=== PATIENT | female | born 1970 | race Hispanic/Latino ===

== ENCOUNTER 2016-12-31 05:54 | Observation (INO) | payer OTHER ==
--- NOTE | 2016-12-31 06:10 | ED PDOC ---
Syncope/Near Syncope/Dizzyness Time Seen by Provider: 12/31/16 05:57 Chief Complaint (Nursing): Syncope History Per: Patient History/Exam Limitations: no limitations Onset/Duration Of Symptoms: Mins Current Symptoms Are (Timing): Better Number Of Syncopal Episodes: 1 Associated Symptoms Preceding Syncopal Episode: Lightheadedness Seizure Or Post-ictal Symptoms: None Additional Complaint(s): Hx of HTN (Doesn't know meds or PMD) p/w syncopal episode this morning, states that she woke up this morning and went to [facility] bathroom, felt dizzy and lightheaded and then passed out. states that she "face planted". Patient states that she urinated on herself, but she states this was because she needed to urinate very badly and remembers urinating on herself, denies tongue biting. States she currently has a HARVEY. Denies CP/SOB/palpitations currently, but earlier she states she was having SOB and palpitations during the syncopal episdoe. Of note, patient states she drinks 2 bottles of wine daily and states she drank that much yesterday. +Smoker. Denies drugs. PMD: Dr. Naila Cool - Risk Factors TAD Risk Factors: Pos: Hypertension Past Medical History - Medical History PMH: Anxiety, Depression, HTN - Family History Family History: States: Unknown Family Hx - Allergies Allergies/Adverse Reactions: Allergies Allergy/AdvReac Type Severity Reaction Status Date / Time No Known Allergies Allergy Verified 01/20/16 03:58 Review of Systems ROS Statement: Except As Marked, All Systems Reviewed And Found Negative Cardiovascular: Negative for: Chest Pain Neurological: Positive for: Dizziness Physical Exam - Reviewed Nursing Documentation Reviewed: Yes Vital Signs Reviewed: Yes - Physical Exam Appears: Positive for: Well, Non-toxic, No Acute Distress Head Exam: Positive for: ATRAUMATIC, NORMAL INSPECTION, NORMOCEPHALIC Skin: Positive for: Normal Color, Warm, DRY Eye Exam: Positive for: EOMI, Normal appearance, PERRL ENT: Negative for: Normal ENT Inspection (dried blood in nares, no septal hematoma) Neck: Positive for: Normal, Painless ROM Cardiovascular/Chest: Positive for: Irregularly Irregular Respiratory: Positive for: CNT, Normal Breath Sounds Gastrointestinal/Abdominal: Positive for: Normal Exam, Bowel Sounds, Soft Back: Positive for: Normal Inspection Extremity: Positive for: Normal ROM Neurologic/Psych: Positive for: Alert, Oriented Medical Decision Making Medical Decision Making: PT. w/ syncopal episode. Tachy w/ Afib w/ RVR, possibly dehydration related, possibly 2/2 to alcohol use or electrolyte imbalance. Will do labs, ekg, CT, cxr, and reassess. Disposition - Clinical Impression Clinical Impression: Syncope, Atrial fibrillation with RVR - Disposition Disposition: Transfer of Care Disposition Time: 07:00 Condition: STABLE Patient Signed Over To: Dino Ramos Handoff Comments: labs, ct, reassessment
[2016-12-31] MEDS ORDERED: Sodium Chloride 0.9% 1,000 ML IV STA ×2 (06:15→08:36)
[2016-12-31 07:03] LABS: BASO % 1.3 % (0.0-2.0); EOS # 0.1 K/uL (0.0-0.7); EOS % 3.5 % (0.0-4.0); HEMATOCRIT 41.2 % (34.0-47.0); LYMPH # 1.5 K/uL (1.0-4.3); LYMPH % 39.4 % (20.0-40.0); MEAN CELL VOLUME 99.7 fl (81.0-99.0); MEAN CORPUSCULAR HEMOGLOBIN 33.4 pg (27.0-31.0); MEAN CORPUSCULAR HGB CONC 33.5 g/dL (33.0-37.0); MEAN PLATELET VOLUME 7.8 fl (7.2-11.7); MONO # 0.5 K/uL (0.0-0.8); MONO % 13.5 % (0.0-10.0); NEUT # 1.6 K/uL (1.8-7.0); NEUT % 42.3 % (50.0-75.0); RED CELL DISTRIBUTION WIDTH 13.2 % (11.5-14.5); WHITE BLOOD COUNT 3.7 K/uL (4.8-10.8)
[2016-12-31 07:15] LABS: ALB/GLOB RATIO 1.3 (1.0-2.1); ALCOHOL SERUM 44 mg/dl (0-10); ALKALINE PHOSPHATASE 49 U/L (38-126); ALT/SGPT 39 U/L (9-52); AST/SGOT 42 U/L (14-36); BILIRUBIN,TOTAL 0.6 mg/dl (0.2-1.3); BLOOD UREA NITROGEN 12 mg/dl (7-17); CALCIUM 8.9 mg/dL (8.4-10.2); CARBON DIOXIDE 22 mmol/L (22-30); CHLORIDE 105 mmol/L (98-107); GFR AFRICAN-AMERICAN > 60; GLUCOSE,RANDOM 86 mg/dL (65-105); POTASSIUM 3.7 MMOL/L (3.6-5.0); SODIUM 139 mmol/l (132-148); TOTAL PROTEIN 7.1 G/DL (6.3-8.2)
--- NOTE | 2016-12-31 08:27 | ED PDOC ---
- Laboratory Results Result Diagrams: 12/31/16 06:52 12/31/16 06:52 - ECG O2 Sat by Pulse Oximetry: 100 Medical Decision Making Medical Decision Making: Time: 699 Patient signed out by Dr. Doty pending work up and admission Time: 899 Repeat EKG: AFib 139 Troponin negative Patient will be admitted at this time to medicine oncall pt evauated at bedside. still tachycardic and in a fib. according to pt has history of afib but never followed up with flyer repairer. pt aware that will be staying in hospital and agreeable to plan. pt given iv and po cardizem. Time: [address] Redd (med material controller) who accepted patient, cardiology consulted. Dr. Bang requested that we withhold Lovenox until he evaluates patient at bedside. Scribe Attestation: Documented by Marilin Bhat acting as a scribe for Dino Ramos MD MD Scribe Attestation: All medical record entries made by the Scribe were at my direction and personally dictated by me. I have reviewed the chart and agree that the record accurately reflects my personal performance of the history, physical exam, medical decision making, and the department course for this patient. I have also personally directed, reviewed, and agree with the discharge instructions and disposition. Disposition Counseled Patient/Family Regarding: Studies Performed, Diagnosis, Need For Followup - Clinical Impression Clinical Impression: Syncope, Atrial fibrillation with RVR - POA Present On Arrival: None - Disposition Disposition: Admitted as In-Patient Disposition Time: 08:30 Condition: STABLE
--- NOTE | 2016-12-31 09:40 | CT ---
PROCEDURE: CT HEAD WITHOUT CONTRAST. HISTORY: syncope, head trauma COMPARISON: Correlation made with concurrent CT scan maxillofacial skeleton. TECHNIQUE: Axial computed tomography images were obtained through the head/brain without intravenous contrast. Radiation dose: Total exam DLP = 864.94 mGy-cm. This CT exam was performed using one or more of the following dose reduction techniques: Automated exposure control, adjustment of the mA and/or kV according to patient size, and/or use of iterative reconstruction technique. FINDINGS: HEMORRHAGE: No intracranial hemorrhage. BRAIN: No mass effect or edema. Mild generalized volume loss. Minimal vascular calcifications VENTRICLES: No evidence of obstructive hydrocephalus. CALVARIUM: Unremarkable. PARANASAL SINUSES: Unremarkable as visualized. No significant inflammatory changes. MASTOID AIR CELLS: Unremarkable as visualized. No inflammatory changes. OTHER FINDINGS: None. IMPRESSION: No acute intracranial hemorrhage. Mild generalized volume loss with more localized atrophic changes involving the frontal cortex. Indication
--- NOTE | 2016-12-31 09:48 | CT ---
PROCEDURE: CT MAXILLOFACIAL BONES WITHOUT CONTRAST HISTORY: facial trauma after syncopal episode COMPARISON: None TECHNIQUE: Contiguous axial CT images of the maxillofacial bones were obtained. Coronal and sagittal reformats were generated. Radiation dose: Total exam DLP = 864.94 mGy-cm. This CT exam was performed using one or more of the following dose reduction techniques: Automated exposure control, adjustment of the mA and/or kV according to patient size, and/or use of iterative reconstruction technique. FINDINGS: NASAL BONES: Unremarkable. There is deviation of the nasal septum from left to right felt to be pre-existing. ORBITS: There may be some mild localized on right lateral periorbital soft tissue swelling PARANASAL SINUSES/ MASTOIDS: Clear. MAXILLA: Unremarkable. MANDIBLE/ TEMPOROMANDIBULAR JOINTS: Unremarkable. SKULL BASE: Unremarkable. TEMPORAL BONES: Middle ears and mastoid grossly unremarkable. OTHER FINDINGS: None. IMPRESSION: No acute fracture seen. Mild focal deviation of the nasal septum from left to right felt be pre-existing findings. Questionable mild on the right lateral periorbital soft tissue swelling
[2016-12-31] MEDS ORDERED: Enoxaparin 80 mg Syringe SC SCH (12:00)
--- NOTE | 2016-12-31 12:17 | RAD ---
PROCEDURE: CHEST RADIOGRAPH, 1 VIEW HISTORY: afib w/ RVR, syncope COMPARISON: None available. FINDINGS: LUNGS: Clear. PLEURA: No pneumothorax or pleural fluid seen. CARDIOVASCULAR: Normal. OSSEOUS STRUCTURES: No significant abnormalities. VISUALIZED UPPER ABDOMEN: Normal. OTHER FINDINGS: None. IMPRESSION: No active disease.
--- NOTE | 2016-12-31 12:34 | CON ---
DATE: 12/31/2016 REASON FOR CONSULTATION: Atrial fibrillation and near syncope. HISTORY OF PRESENT ILLNESS: The patient is a 46-year-old female who has a history of ETOH abuse. 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 She was advised by her medical doctor to see a cardiologis t in the past, but does not know for which reason except for an abnormal cardiogram. The patient pre sented today because of a near syncopal episode. The patient stated that after drinking alcohol she had to use the bathroom and she felt dizzy. Before she was able to reach the commode, she collapsed on the floor, hitting her head. Following that, the patient urinated while on the floor. She denies any tongue biting. The patient does not recall for sure if she really lost consciousness or not, bu t she remembers feeling shaky. The patient denies any history of seizures in the past. After the im pact of the patient's head on the floor, the fiance was alerted and went to the bathroom and helped h er to the bed and he activated EMS who brought her to the Emergency Room. The patient denies any sim ilar scenario in the past. The patient denies any headache or neck pain following her fall. SOCIAL HISTORY: The patient is a drinker. MENSTRUAL HISTORY: The patient has not had her period for the past 9 months. She has no children. MEDICATIONS: The patient received 1 dose of Cardizem 50 mg intravenously in the Emergency Room follo wed by 30 mg p.o. as a single dose, and she is currently on IV fluid normal saline infusion. HOME MEDICATIONS: Included Norvasc 2.5 mg once a day, multivitamin 1 tablet once a day, Lexapro 20 m g once a day. However, the patient is noncompliant with her medications. PHYSICAL EXAMINATION: GENERAL: The patient is a middle-aged female who does not appear to be in any distress. VITAL SIGNS: Blood pressure 123/69, heart rate 106, temperature 98, respirations 16. HEENT: Normocephalic. NECK: No JVD. CHEST: Clear. HEART: S1, S2 regular. ABDOMEN: Soft. EXTREMITIES: No edema. LABORATORY DATA: Urine drug screen is negative. Alcohol level is 44. SMA-7: Sodium 139, potassium 3.7, chloride 106, CO2 22, glucose 86, BUN 12, creatinine 0.5. One set of troponins is negative. P T, PTT are within normal limit. Maxillofacial CT scan: No acute fracture, mild focal deviation of the nasal septum, questionable mil d on the right lateral periorbital soft tissue swelling. Chest x-ray unremarkable. EKG revealed atr ial fibrillation at rate of 131. ASSESSMENT: 1. Near syncope versus seizure activity. 2. New onset atrial fibrillation. 3. Ethanol abuse. 4. Hypertension. 5. History of an anxiety disorder. RECOMMENDATIONS: Start Lopressor 25 mg twice a day. I did review the head CT scan in the Emergency Room which revealed no acute intracranial hemorrhage, and I will start therapeutic subcutaneous Loven ox regimen. In the meantime, the patient will be maintained on both seizure and fall precautions. O btain TSH level and an echocardiogram. Start thiamine 100 mg p.o. daily. Continue intravenous hydra tion. Stewart Rodriguez MD cc: [id number] TT: 12/31/2016 12:33:25 Confirmation # [id number] Dictation # [id number]
--- NOTE | 2016-12-31 13:10 | CP.PCM.HP ---
History of Present Illness - History of Present Illness History of Present Illness: 46yo F with PMHx axiety/depression, HTN admitted for syncope and new onset Afib with RVR. c/o dizziness x1 year a/w palpitations at times. Today, ~ 9AM pt had to use the toilet to urinate, pt felt dizzy. +LOC from standing position to the floor, c/o pain at the nasal area. Denies any other head trauma/pain. Denies vertigo, H/A. States her PCP wanted her to get cardiology evaluation as outpt prior to this. PMHx: as above SHx: denies FHx: NC Social hx: denies x3 allergies: NKDA ED course EKG - Afib with RVR c/s cardio Diltiazem 15mg IV x1 Diltiazem 20mg IV x1 Diltiazem 30mg PO x1 NS IVF bolus 1L x2 Present on Admission - Present on Admission Any Indicators Present on Admission: No Review of Systems - Constitutional Constitutional: absent: Chills, Fever - Cardiovascular Cardiovascular: absent: Chest Pain - Respiratory Respiratory: absent: Dyspnea - Gastrointestinal Gastrointestinal: absent: Abdominal Pain, Diarrhea, Nausea, Vomiting - Genitourinary Genitourinary: absent: Dysuria, Hematuria - Musculoskeletal Musculoskeletal: Back Pain - Neurological Neurological: Dizziness, Weakness. absent: Frequent Falls, Vertigo Past Patient History - Past Social History Smoking Status: Light Smoker < 10 Cigarettes Daily - CARDIAC Hx Cardiac Disorders: Yes - PULMONARY Hx Respiratory Disorders: No - NEUROLOGICAL Hx Neurological Disorder: No - HEENT Hx HEENT Problems: No - RENAL Hx Chronic Kidney Disease: No - ENDOCRINE/METABOLIC Hx Endocrine Disorders: No - HEMATOLOGICAL/ONCOLOGICAL Hx Blood Disorders: No - INTEGUMENTARY Hx Dermatological Problems: No - MUSCULOSKELETAL/RHEUMATOLOGICAL Hx Musculoskeletal Disorders: No - GASTROINTESTINAL Hx Gastrointestinal Disorders: No - GENITOURINARY/GYNECOLOGICAL Hx Genitourinary Disorders: No - PSYCHIATRIC Hx Psychophysiologic Disorder: Yes - SURGICAL HISTORY Hx Surgeries: No - ANESTHESIA Hx Anesthesia: No Meds Allergies/Adverse Reactions: Allergies Allergy/AdvReac Type Severity Reaction Status Date / Time No Known Allergies Allergy Verified 01/20/16 03:58 Physical Exam - Constitutional Appears: Non-toxic, No Acute Distress - Head Exam Head Exam: NORMAL INSPECTION - Eye Exam Eye Exam: EOMI, PERRL - Neck Exam Neck exam: Positive for: Normal Inspection - Respiratory Exam Respiratory Exam: Clear to Auscultation Bilateral - Cardiovascular Exam Cardiovascular Exam: Irregular Rhythm - GI/Abdominal Exam GI & Abdominal Exam: Normal Bowel Sounds, Soft - Extremities Exam Extremities exam: Positive for: normal inspection. Negative for: pedal edema - Neurological Exam Neurological exam: Alert, CN II-XII Intact, Oriented x3 - Skin Skin Exam: Dry, Warm Results - Vital Signs Recent Vital Signs: Last Vital Signs Temp 98.0 F 12/31/16 07:25 Pulse 106 H 12/31/16 09:51 Resp 16 12/31/16 09:51 BP 123/69 12/31/16 09:51 Pulse Ox 100 12/31/16 09:51 - Labs Result Diagrams: 12/31/16 06:52 12/31/16 06:52 Assessment & Plan - Assessment and Plan (Free Text) Assessment: 46yo F with PMHx axiety/depression, HTN admitted for syncope and new onset Afib with RVR. new onset Afib with RVR -CHADS-VASC2 score 2 -EKG - Afib with RVR -cardio on board, appreciate input -ECHO -MIVF -metoprolol 25mg PO BID -lovenox 60mg IV BID syncope -CT head: no acute change -ECHO axiety/depression -lexapro HTN -held amlodipine DVT ppx -lovenox Decision To Admit - Pt Status Changed To: Hospital Disposition Of: Inpatient - Admit Certification Admit to Inpatient:: After my assessment, the patient will require hospitalization for at least two midnights. This is because of the severity of symptoms shown, intensity of services needed, and/or the medical risk in this patient being treated as an outpatient. - . Bed Request Type: Telemetry Admitting Physician: Dougie Redd
[2016-12-31] MEDS ORDERED: Sodium Chloride 0.9% 1,000 ML IV SCH (13:45)
--- NOTE | 2016-12-31 18:51 | CARD ---
APPROVED REPORT EKG Measurement Heart [id number] <Conclusion> Undetermined rhythm Otherwise normal ECG
[2016-12-31 19:15] VITALS: BP 126/87; PULSE 105; RESP 20; TEMP 97.9; O2SAT 92
[2017-01-01] MEDS ORDERED: Multivitamin With Minerals Tab PO SCH (09:00)
--- NOTE | 2017-01-01 10:23 | CARD ---
APPROVED REPORT EXAM: Two-dimensional and M-mode echocardiogram with Doppler and color Doppler. Other Information Quality : GoodRhythm : Atrial Fibrillation INDICATION Atrial Fibrillation 2D DIMENSIONS IVSd0.91 (0.7-1.1cm)LVDd4.95 (3.9-5.9cm) LVOT Diameter1.56 (1.8-2.4cm)PWd0.73 (0.7-1.1cm) IVSs1.36 (0.8-1.2cm)LVDs3.24 (2.5-4.0cm) FS (%) 34.6 %PWs1.24 (0.8-1.2cm) M-Mode DIMENSIONS Left Atrium (MM)3.74 (2.5-4.0cm)IVSd1.03 (0.7-1.1cm) Aortic Root2.82 (2.2-3.7cm)LVDd5.17 (4.0-5.6cm) Aortic Cusp Exc.1.88 (1.5-2.0cm)PWd0.98 (0.7-1.1cm) IVSs1.49 cmFS (%) 41 % LVDs3.06 (2.0-3.8cm)PWs1.72 cm Mitral Valve E/A ratio0.0 TDI E/Lateral E'0.0E/Medial E'0.0 LEFT VENTRICLE The left ventricle is normal size. There is normal left ventricular wall thickness. The left ventricular function is normal. The left ventricular ejection fraction is within the normal range. The Ejection Fraction is 65-70%. There is normal LV segmental wall motion. The left ventricular diastolic function is normal. No left ventricle thrombus noted on this study. There is no mass noted in the left ventricle. RIGHT VENTRICLE The right ventricle is normal size. There is normal right ventricular wall thickness. The right ventricular systolic function is normal. ATRIA The left atrium size is normal. The right atrium size is normal. The interatrial septum is intact with no evidence for an atrial septal defect. AORTIC VALVE The aortic valve is normal in structure and function. No aortic regurgitation is present. There is no aortic valvular stenosis. There is no aortic valvular vegetation. MITRAL VALVE The mitral valve is normal in structure and function. There is no evidence of mitral valve prolapse. There is no mitral valve stenosis. There is no mitral valve regurgitation noted. TRICUSPID VALVE The tricuspid valve is normal in structure and function. There is no tricuspid valve regurgitation noted. There is no tricuspid valve prolapse or vegetation. There is no tricuspid valve stenosis. PULMONIC VALVE The pulmonary valve is normal in structure and function. There is no pulmonic valvular regurgitation. There is no pulmonic valvular stenosis. GREAT VESSELS The aortic root is normal in size. The IVC is normal in size and collapses >50% with inspiration. PERICARDIAL EFFUSION The pericardium appears normal. There is no pleural effusion. <Conclusion> The left ventricle is normal size. The left ventricular function is normal. The left ventricular ejection fraction is within the normal range. The Ejection Fraction is 65-70%.
== END 2016-12-31 21:10 | disposition left against medical advice (07) ==
LOC: H.ER 05:54 → H.ERHOLD 09:19 → INTOOBSV 09:19 → H.TEL 13:36
PROVIDERS: ADMIT Internal Medicine; ATTEND Internal Medicine
DX: I48.91 Unspecified atrial fibrillation (principal); I10 Essential (primary) hypertension; F32.9 Major depressive disorder, single episode, unspecified; R55 Syncope and collapse; F10.10 Alcohol abuse, uncomplicated; Y90.2 Blood alcohol level of 40-59 mg/100 ml; F41.9 Anxiety disorder, unspecified; F17.210 Nicotine dependence, cigarettes, uncomplicated; Z91.14 Patient's other noncompliance with medication regimen

== ENCOUNTER 2017-04-03 15:31 | Emergency (ER) | payer OTHER ==
[2017-04-03 15:42] VITALS: BP 104/73; PULSE 86; RESP 18; TEMP 97.8; O2SAT 97
--- NOTE | 2017-04-03 15:51 | ED PDOC ---
HPI: Psych/Substance Abuse Time Seen by Provider: 04/03/17 15:42 Chief Complaint (Nursing): Alcohol Ingestion Chief Complaint (Provider): Alcohol ingestion History Per: Patient History/Exam Limitations: no limitations Onset/Duration Of Symptoms: Hrs Current Symptoms Are (Timing): Still Present Modifying Factor(s): Alcohol Additional Complaint(s): The patient is a 47yo female, brought in by EMS for evaluation s/p discovering patient publicly intoxicated. Patient currently offers no medical complaints. She denies any other drug usage. Past Medical History Reviewed: Historical Data, Nursing Documentation, Vital Signs Vital Signs: Last Vital Signs Temp 97.8 F 04/03/17 15:39 Pulse 86 04/03/17 15:39 Resp 18 04/03/17 15:39 BP 104/73 04/03/17 15:39 Pulse Ox 97 04/03/17 15:39 - Medical History PMH: Anxiety, Atrial Fibrillation, Depression, HTN Denies: Chronic Kidney Disease - Family History Family History: States: Unknown Family Hx - Home Medications Home Medications: Ambulatory Orders Medication Instructions Recorded Escitalopram [Lexapro] 20 mg PO DAILY 12/31/16 Multivitamin [Multi-Vitamin Daily] 1 tab PO DAILY 12/31/16 Turmeric Root Extract [Turmeric] 1 cap PO DAILY 12/31/16 Vitamin E [Vitamin E 400 Units Cap] 1 cap PO DAILY 12/31/16 amLODIPine [Norvasc] 2.5 mg PO DAILY 12/31/16 - Allergies Allergies/Adverse Reactions: Allergies Allergy/AdvReac Type Severity Reaction Status Date / Time No Known Allergies Allergy Verified 04/03/17 15:39 Review of Systems ROS Statement: Except As Marked, All Systems Reviewed And Found Negative Physical Exam - Reviewed Nursing Documentation Reviewed: Yes Vital Signs Reviewed: Yes - Physical Exam Appears: Positive for: Well, Non-toxic, No Acute Distress Head Exam: Positive for: ATRAUMATIC, NORMAL INSPECTION, NORMOCEPHALIC Skin: Positive for: Normal Color Respiratory: Negative for: Respiratory Distress Neurologic/Psych: Positive for: Alert, Oriented - ECG O2 Sat by Pulse Oximetry: 97 (RA) Pulse Ox Interpretation: Normal Medical Decision Making Medical Decision Making: Time: 1544 Impression: Alcohol ingestion Plan: -- Patient's called ER and reports he will pick patient up. Patient in no acute distress, vital signs normal and stable for d/c home. Pt's arrived 1600, spoke to instructional writer. willing to sign Pts out of ED, comfortable taking home. Scribe Attestation: Documented by Jie Cedeno acting as a scribe for FARA Beebe Provider Attestation: All medical record entries made by the Scribe were at my direction and personally dictated by me. I have reviewed the chart and agree that the record accurately reflects my personal performance of the history, physical exam, medical decision making, and the department course for this patient. I have also personally directed, reviewed, and agree with the discharge instructions and disposition. Disposition - Clinical Impression Clinical Impression: Alcohol ingestion - Patient ED Disposition Is Patient to be Admitted: No - Disposition Disposition: Routine/Home Disposition Time: 16:21 Condition: STABLE Instructions: Alcohol Intoxication (ED) Forms: [facility] (Ukrainian) - POA Present On Arrival: None
== END 2017-04-03 16:23 | disposition home or self-care (01) ==
LOC: H.ER 15:31
DX: F10.10 Alcohol abuse, uncomplicated (principal); F32.9 Major depressive disorder, single episode, unspecified; F41.9 Anxiety disorder, unspecified; I10 Essential (primary) hypertension; I48.91 Unspecified atrial fibrillation

== ENCOUNTER 2017-05-16 13:47 | Emergency (ER) | payer OTHER ==
[2017-05-16 13:55] VITALS: BP 105/72; PULSE 78; RESP 18; TEMP 97.6; O2SAT 99
--- NOTE | 2017-05-16 14:22 | ED PDOC ---
HPI: Psych/Substance Abuse Time Seen by Provider: 05/16/17 13:56 Chief Complaint (Nursing): Alcohol Ingestion Chief Complaint (Provider): ETOH History Per: Patient Additional Complaint(s): The patient is a 47yo female, brought in by EMS for evaluation s/p discovering patient publicly intoxicated. Patient currently offers no medical complaints. She denies any other drug usage. Patient was reportedly walking home from nail salon and fell. Bruising and swelling to bridge of nose and lower lip. (+) AOB. pt speaking in clear sentences, admits to drinking today. Denies any drug usage Past Medical History Reviewed: Historical Data, Nursing Documentation, Vital Signs Vital Signs: Last Vital Signs Temp 97.6 F 05/16/17 13:52 Pulse 78 05/16/17 13:52 Resp 18 05/16/17 13:52 BP 105/72 05/16/17 13:52 Pulse Ox 99 05/16/17 13:52 - Medical History PMH: Anxiety, Atrial Fibrillation, Depression, HTN Denies: Chronic Kidney Disease - Family History Family History: States: Unknown Family Hx - Living Arrangements Living Arrangements: With Family () - Social History Alcohol: > 2 Drinks/Day - Home Medications Home Medications: Ambulatory Orders Medication Instructions Recorded Escitalopram [Lexapro] 20 mg PO DAILY 12/31/16 Multivitamin [Multi-Vitamin Daily] 1 tab PO DAILY 12/31/16 Turmeric Root Extract [Turmeric] 1 cap PO DAILY 12/31/16 Vitamin E [Vitamin E 400 Units Cap] 1 cap PO DAILY 12/31/16 amLODIPine [Norvasc] 2.5 mg PO DAILY 12/31/16 - Allergies Allergies/Adverse Reactions: Allergies Allergy/AdvReac Type Severity Reaction Status Date / Time No Known Allergies Allergy Verified 04/03/17 15:39 Review of Systems ROS Statement: Except As Marked, All Systems Reviewed And Found Negative Skin: Positive for: Bruising Physical Exam - Reviewed Nursing Documentation Reviewed: Yes Vital Signs Reviewed: Yes - Physical Exam Appears: Positive for: Well, Non-toxic, No Acute Distress Head Exam: Positive for: ATRAUMATIC, NORMAL INSPECTION, NORMOCEPHALIC Skin: Positive for: Normal Color, Warm, DRY Eye Exam: Positive for: EOMI, PERRL, Other ((+) ecchymosis to nasal brdige, edema to upper lip) ENT: Positive for: Normal ENT Inspection Neck: Positive for: Normal, Painless ROM Cardiovascular/Chest: Positive for: Regular Rate, Rhythm Respiratory: Positive for: CNT, Normal Breath Sounds Gastrointestinal/Abdominal: Positive for: Normal Exam, Bowel Sounds, Soft Back: Positive for: Normal Inspection Extremity: Positive for: Normal ROM Neurologic/Psych: Positive for: Alert, Oriented - Laboratory Results Result Diagrams: 05/16/17 15:22 - ECG O2 Sat by Pulse Oximetry: 99 Medical Decision Making Medical Decision Making: Diagnostics ordered, including Head and Maxillofacial CT scans. Pt's presented to bedside. IV access removed and thrown into trash, Pt and her witnessed eloping from ED. Code Eder called by RN. CBC is only result obtained at this time, WNL Disposition - Clinical Impression Clinical Impression: Alcohol use - Disposition Disposition: Routine/Home Disposition Time: 15:49 Condition: FAIR Forms: [facility] (Georgian) - POA Present On Arrival: Falls Or Trauma
[2017-05-16 15:30] LABS: BASO % 0.8 % (0.0-2.0); EOS # 0.1 K/uL (0.0-0.7); EOS % 1.9 % (0.0-4.0); HEMATOCRIT 39.7 % (34.0-47.0); LYMPH # 1.5 K/uL (1.0-4.3); LYMPH % 32.4 % (20.0-40.0); MEAN CELL VOLUME 98.9 fl (81.0-99.0); MEAN CORPUSCULAR HEMOGLOBIN 33.7 pg (27.0-31.0); MEAN CORPUSCULAR HGB CONC 34.1 g/dL (33.0-37.0); MEAN PLATELET VOLUME 7.2 fl (7.2-11.7); MONO # 0.4 K/uL (0.0-0.8); MONO % 7.7 % (0.0-10.0); NEUT # 2.6 K/uL (1.8-7.0); NEUT % 57.2 % (50.0-75.0); NRBC % 0.1 % (0.0-0.0); RED CELL DISTRIBUTION WIDTH 12.1 % (11.5-14.5); WHITE BLOOD COUNT 4.6 K/uL (4.8-10.8)
[2017-05-16 15:36] LABS: RBC URINE < 1 /hpf (0-3); URINE BILIRUBIN NEGATIVE (NEGATIVE); URINE BLOOD NEGATIVE (NEGATIVE); URINE COLOR STRAW (YELLOW); URINE GLUCOSE (UA) NEG (Normal); URINE KETONE NEGATIVE (NEGATIVE); URINE LEUKOCYTE ESTERASE NEG Leu/uL (Negative); URINE PROTEIN NEGATIVE (NEGATIVE); URINE UROBILINOGEN 0.2-1.0 mg/dL (0.2-1.0); WBC URINE 1 /hpf (0-5)
[2017-05-16 16:32] LABS: ALB/GLOB RATIO 1.5 (1.0-2.1); ALKALINE PHOSPHATASE 56 U/L (38-126); ALT/SGPT 50 U/L (9-52); AST/SGOT 46 U/L (14-36); BILIRUBIN,TOTAL 0.3 mg/dl (0.2-1.3); BLOOD UREA NITROGEN 8 mg/dl (7-17); CALCIUM 9.1 mg/dL (8.4-10.2); CARBON DIOXIDE 24 mmol/L (22-30); CHLORIDE 105 mmol/L (98-107); GFR AFRICAN-AMERICAN > 60; GLUCOSE,RANDOM 104 mg/dL (65-105); SODIUM 144 mmol/l (132-148); TOTAL PROTEIN 7.7 G/DL (6.3-8.2)
[2017-05-16 16:44] LABS: ALCOHOL SERUM 344 mg/dl (0-10)
== END 2017-05-16 15:30 | disposition left against medical advice (07) ==
LOC: H.ER 13:47
DX: F10.129 Alcohol abuse with intoxication, unspecified (principal)